=== PATIENT | female | born 1950 | race African-American/Black ===

== ENCOUNTER 2017-12-10 14:55 | Emergency (ER) | payer OTHER, MEDICAID ==
[~2017-12-10] VITALS: Ht 167.6 cm; Wt 63.0 kg
[2017-12-10 15:00] VITALS: BP 102/71
== END 2017-12-10 18:50 | disposition left against medical advice (07) ==
LOC: ER 14:55
DX: Z04.8 Encounter for examination and observation for other specified reasons (principal); Z53.21 Procedure and treatment not carried out due to patient leaving prior to being seen by health care provider